=== PATIENT | male | born 1950 | race Caucasian/White ===

== ENCOUNTER 2019-07-03 08:03 | Day surgery (SDC) | payer OTHER ==
[2019-06-30 09:26] VITALS: BMI 28.3
[2019-07-03] MEDS ORDERED: LIDOCAINE HCL/PF 2% SDV 5ML VIAL ONE (08:56)
[2019-07-03] MEDS ORDERED: PROPOFOL 20 ML ONE ×4 (08:56)
[2019-07-03 10:17] VITALS: TEMP 98.7
[2019-07-03 11:23] VITALS: BP 122/74; PULSE 58
== END 2019-07-03 10:40 | disposition home or self-care (01) ==
LOC: FASU-ENDO 08:03
PROVIDERS: ATTEND Internal Medicine Gastroenterology
PROC: 0DJD8ZZ Inspection of Lower Intestinal Tract, Via Natural or Artificial Opening Endoscopic (ICD-10-PCS; principal; 2019-07-03 09:43)
DX: Z86.010 Personal history of colon polyps (principal)
CPT/HCPCS: 82962

== ENCOUNTER 2024-09-14 08:10 | Day surgery (SDC) | payer OTHER, MEDICARE ==
[2024-08-28 17:27] VITALS: BMI 29.2
[2024-09-14 10:03] VITALS: RESP 18; TEMP 97.7
[2024-09-14 10:06] VITALS: BP 101/63; PULSE 65
== END 2024-09-14 10:50 | disposition home or self-care (01) ==
LOC: FASU-ENDO 08:10
PROVIDERS: ATTEND Internal Medicine Gastroenterology
PROC: 0DBL8ZX Excision of Transverse Colon, Via Natural or Artificial Opening Endoscopic, Diagnostic (ICD-10-PCS; principal; 2024-09-14 09:16)
DX: Z12.11 Encounter for screening for malignant neoplasm of colon (principal); D12.3 Benign neoplasm of transverse colon; Z86.0100 Personal history of colon polyps, unspecified
CPT/HCPCS: 88305-TC